=== PATIENT | female | born 1940 | race African-American/Black ===

== ENCOUNTER 2020-10-13 11:52 | Emergency (ER) | payer MEDICAID ==
[~2020-10-13] VITALS: Ht 152.4 cm; Wt 68.0 kg
[2020-10-13] MEDS ORDERED: DOCU-270 PO (12:37)
[2020-10-13] MEDS ORDERED: MELO-107 PO (12:37)
[2020-10-13] MEDS ORDERED: ALBU2.5V11 NEB (12:37)
[2020-10-13] MEDS ORDERED: CALC1TAB91 PO (12:37)
[2020-10-13] MEDS ORDERED: OMEP40CA13 PO (12:37)
[2020-10-13] MEDS ORDERED: FLUT1BLS12 PO (12:37)
[2020-10-13] MEDS ORDERED: AMLO-213 PO (12:37)
[2020-10-13] MEDS ORDERED: HYDR25TA4 PO (12:37)
[2020-10-13] MEDS ORDERED: ASPI-1420 PO (12:37)
[2020-10-13] MEDS ORDERED: ATOR40TA PO (12:37)
[2020-10-13] MEDS ORDERED: MONT10TA22 PO (12:37)
[2020-10-13] MEDS ORDERED: MEMA5TAB42 PO (12:37)
[2020-10-13] MEDS ORDERED: LISI-607 PO (12:37)
--- NOTE | 2020-10-13 13:02 | NUR ---
Pt impatient tp go home. "Wanted just the test- Dr Parks made aware. AMA for signed
[2020-10-13 13:06] VITALS: BP 136/75
--- NOTE | 2020-10-14 11:58 | NUR ---
CALLED PATIENT TO NOTIFY OF POSITIVE COVID RESULT
== END 2020-10-13 13:06 | disposition home or self-care (01) ==
LOC: ER 11:58
DX: U07.1 COVID-19 (principal); J44.9 Chronic obstructive pulmonary disease, unspecified; I10 Essential (primary) hypertension; Z79.82 Long term (current) use of aspirin; Z79.899 Other long term (current) drug therapy
CPT/HCPCS: 71045; 99284; C9803; U0003